=== PATIENT | male | born 1940 | race Caucasian/White ===

== ENCOUNTER 2017-01-04 05:32 | Emergency (ER) | payer MEDICARE, BC ==
[2017-01-04] MEDS ORDERED: SODIUM CHLORIDE 0.9% 1000ML 1,000 ML IV ONE ×2 (05:50→06:50)
[2017-01-04] MEDS ORDERED: ONDANSETRON HCL 4 MG/2 ML SOL ONE ×2 (05:53→07:25)
[2017-01-04] MEDS ORDERED: ONDANSETRON HCL 4 MG/2 ML SOL IV ONE ×2 (05:53→07:24)
[2017-01-04 06:08] LABS: BASOPHILS % (AUTO) 0 % (0-3); EOSINOPHILS % (AUTO) 0 % (0-9); HEMATOCRIT 27 % (39-53); MEAN CORPUSCULAR HGB CONC 35.9 gm/dl (32.0-36.0); MEAN CORPUSCULAR VOLUME 90 fL (80-100); MONOCYTES % (AUTO) 7.1 % (0-12); NEUTROPHILS % (AUTO) 80.5 % (37-80)
[2017-01-04 06:24] LABS: ALBUMIN 2.6 gm/dl (3.4-5.0); CALCIUM 7.8 mg/dl (8.5-10.1); POTASSIUM 3.1 mMol/L (3.5-5.1)
[2017-01-04] MEDS ORDERED: PROMETHAZINE HYDROCHLORIDE 25 MG/ML SOL IV ONE (06:27)
[2017-01-04] MEDS ORDERED: LIDOCAINE HCL 1% MPF SOL ONE (07:02)
[2017-01-04] MEDS ORDERED: DOBUTAMINE HCL IV ONE (08:24)
[2017-01-04] MEDS ORDERED: DOBUTAMINE HCL IV SCH (08:30)
[2017-01-04] MEDS ORDERED: SODIUM CHLORIDE 0.9% IV SCH (08:30)
[2017-01-04 08:47] LABS: APPEARANCE,URINE Clear; BILIRUBIN,URINE NEGATIVE (NEGATIVE); COLOR,URINE Yellow; GLUCOSE, URINE (UA) NEGATIVE (NEGATIVE); KETONES,URINE NEGATIVE (NEGATIVE); LEUKOCYTE ESTERASE ,URINE NEGATIVE (NEGATIVE); NITRATE,URINE NEGATIVE (NEGATIVE); OCCULT BLOOD,URINE TRACE INTACT (NEG-TRACE); PH,URINE 5.5; UROBILINOGEN,URINE 0.2 (0.2-1.0 EU)
[2017-01-04 08:56] LABS: AMPHETAMINES NEGATIVE (NEGATIVE); METHADONE NEGATIVE (NEGATIVE); OPIATES(OP13) NEGATIVE (NEGATIVE); OXYCODONE(OXY) NEGATIVE (NEGATIVE); PROPOXYPHENE(PPX) NEGATIVE (NEGATIVE); RBC,URINE 0-1 (0-3AV/HPF); TRICYCLIC ANTIDEPRESSANTS NEGATIVE (NEGATIVE); WBC,URINE 0-1 (0-5AV/HPF)
[2017-01-04 09:17] VITALS: O2SAT 98
[2017-01-04 09:20] VITALS: PULSE 70; RESP 20; TEMP 96.8
[2017-01-04 09:22] VITALS: BP 114/57
[2017-01-04 10:25] LABS: ANTIBODY SCREEN Negative; UNIT TYPE O NEGATIVE
== END 2017-01-04 08:36 | disposition short-term general hospital (02) | DRG 605 ==
LOC: ED 05:32
DX: S01.81XA Laceration without foreign body of other part of head, initial encounter (principal); I95.9 Hypotension, unspecified; D62 Acute posthemorrhagic anemia; W18.30XA Fall on same level, unspecified, initial encounter
CPT/HCPCS: 36415; 70450; 71010; 72125; 73030; 80053; 80305; 80307; 81001; 82150; 82550; 84484; 85025; 85610; 85730; 86850; 86900; 86901; 86920; 93005; 99291; G0390; J1250; J2405; J2001

== ENCOUNTER 2017-08-18 14:13 | Emergency (ER) | payer MEDICARE, BC ==
[2017-08-18 14:19] VITALS: TEMP 97.3
[2017-08-18 15:13] LABS: CALCIUM 8.8 mg/dl (8.5-10.1); POTASSIUM 3.1 mMol/L (3.5-5.1)
[2017-08-18] MEDS ORDERED: FUROSEMIDE 100 MG SOL IV ONE (16:11)
[2017-08-18] MEDS ORDERED: FUROSEMIDE 40 MG SOL ONE (16:12)
[2017-08-18 17:37] VITALS: RESP 20
[2017-08-18 18:14] VITALS: BP 127/84; PULSE 81; O2SAT 92
== END 2017-08-18 17:58 | disposition short-term general hospital (02) | DRG 293 ==
LOC: ED 14:13
DX: I50.9 Heart failure, unspecified (principal); R06.00 Dyspnea, unspecified; I48.91 Unspecified atrial fibrillation; R06.02 Shortness of breath; Z95.0 Presence of cardiac pacemaker; M79.89 Other specified soft tissue disorders
CPT/HCPCS: 71045; 80048; 83880; 85378; 99285; J1940

== ENCOUNTER 2017-08-27 09:17 | Inpatient (IN) | payer MEDICARE, BC ==
[2017-08-27 10:10] LABS: BASOPHILS % (AUTO) 1 % (0-3); EOSINOPHILS % (AUTO) 1 % (0-9); HEMATOCRIT 48 % (39-53); MEAN CORPUSCULAR HGB CONC 34.3 gm/dl (32.0-36.0); MEAN CORPUSCULAR VOLUME 89 fL (80-100); MONOCYTES % (AUTO) 11.3 % (0-12); NEUTROPHILS % (AUTO) 75.7 % (37-80)
[2017-08-27 10:11] LABS: CALCIUM 9.7 mg/dl (8.5-10.1)
[2017-08-27 10:16] LABS: POTASSIUM 2.2 mMol/L (3.5-5.1)
[2017-08-27] MEDS ORDERED: POTASSIUM CHLORIDE 2 MEQ/ML 60 MEQ, LIDOCAINE HCL 1% MDV 2 ML in SODIUM CHLORIDE 0.9% 1... IV ONE ×2 (10:18→22:02)
[2017-08-27] MEDS ORDERED: ACETAMINOPHEN 500 MG 500 MG TAB PO ONE (10:26)
[2017-08-27] MEDS ORDERED: LIDOCAINE HCL 2% MPF SOL ONE (10:30)
[2017-08-27] MEDS ORDERED: POTASSIUM CHLORIDE 2 MEQ/ML SOL IV ONE ×3 (10:31→22:21)
[2017-08-27] MEDS ORDERED: LIDOCAINE HCL 1% MPF SOL ONE ×2 (10:40→22:21)
[2017-08-27] MEDS ORDERED: ACETAMINOPHEN 500 MG 500 MG TAB ONE (10:51)
[2017-08-27] MEDS ORDERED: PATIENT EDUCATION 1 MISC PRN (12:29)
[2017-08-27] MEDS ORDERED: TRAZODONE HYDROCHLORIDE 50 MG TAB PO PRN (13:28)
[2017-08-27] MEDS ORDERED: SODIUM CHLORIDE 0.9% 1000ML 1,000 ML IV ONE (13:30)
[2017-08-27] MEDS: POTASSIUM CHLORIDE 10 MEQ TER PO SCH ×3 (16:36→22:07)
[2017-08-27] MEDS: ALLOPURINOL 100 MG TAB PO SCH (17:22)
[2017-08-27] MEDS: ATORVASTATIN 10 MG TAB PO SCH (21:12)
[2017-08-27] MEDS ORDERED: POTASSIUM CHLORIDE IV ONE (22:00)
[2017-08-27] MEDS ORDERED: SODIUM CHLORIDE 0.9% IV ONE (22:00)
[2017-08-28] MEDS: POTASSIUM CHLORIDE 10 MEQ TER PO SCH ×3 (01:08→12:15)
[2017-08-28 07:36] LABS: CALCIUM 8.8 mg/dl (8.5-10.1); POTASSIUM 3.4 mMol/L (3.5-5.1)
[2017-08-28 07:40] LABS: BASOPHILS % (AUTO) 1 % (0-3); EOSINOPHILS % (AUTO) 1 % (0-9); HEMATOCRIT 44 % (39-53); MEAN CORPUSCULAR HGB CONC 34.5 gm/dl (32.0-36.0); MEAN CORPUSCULAR VOLUME 90 fL (80-100); MONOCYTES % (AUTO) 12.9 % (0-12); NEUTROPHILS % (AUTO) 68.3 % (37-80)
[2017-08-28] MEDS ORDERED: METOPROLOL SUCCINATE 50 MG ER TAB PO SCH (09:00)
[2017-08-28] MEDS ORDERED: TORSEMIDE 10 MG TABLET PO SCH (09:00)
[2017-08-28] MEDS ORDERED: SPIRONOLACTONE 100 MG TAB PO SCH (09:00)
[2017-08-28] MEDS: SPIRONOLACTONE 25 MG TAB PO SCH (10:03)
[2017-08-28] MEDS: ALLOPURINOL 100 MG TAB PO SCH (10:03)
[2017-08-28] MEDS: METOPROLOL SUCCINATE 50 MG ER TAB PO SCH (10:04)
[2017-08-28] MEDS: TORSEMIDE 10 MG TABLET PO SCH (10:04)
[2017-08-28] MEDS: BUDESONIDE/FORMOTEROL 160/4.5 AER INH SCH (12:16)
[2017-08-28] MEDS: ATORVASTATIN 10 MG TAB PO SCH (20:34)
[2017-08-29 07:31] LABS: POTASSIUM 3.4 mMol/L (3.5-5.1)
[2017-08-29] MEDS ORDERED: METOLAZONE 2.5 MG TABLET PO ONE (08:53)
[2017-08-29] MEDS ORDERED: METOLAZONE 2.5 MG TAB PO SCH (09:00)
[2017-08-29] MEDS: POTASSIUM CHLORIDE 10 MEQ TER PO SCH ×3 (09:38→21:48)
[2017-08-29] MEDS: SPIRONOLACTONE 25 MG TAB PO SCH (09:39)
[2017-08-29] MEDS: BUDESONIDE/FORMOTEROL 160/4.5 AER INH SCH (09:39)
[2017-08-29] MEDS: TORSEMIDE 10 MG TABLET PO SCH (09:39)
[2017-08-29] MEDS: ALLOPURINOL 100 MG TAB PO SCH (09:40)
[2017-08-29] MEDS: METOPROLOL SUCCINATE 50 MG ER TAB PO SCH (09:40)
[2017-08-29] MEDS: ATORVASTATIN 10 MG TAB PO SCH (21:48)
[2017-08-30 08:31] LABS: CALCIUM 9.1 mg/dl (8.5-10.1)
[2017-08-30 08:34] LABS: POTASSIUM 2.9 mMol/L (3.5-5.1)
[2017-08-30] MEDS ORDERED: POTASSIUM CHLORIDE 2 MEQ/ML 60 MEQ, LIDOCAINE HCL 1% MDV 2 ML in SODIUM CHLORIDE 0.9% 1... IV ONE (08:51)
[2017-08-30] MEDS: SPIRONOLACTONE 25 MG TAB PO SCH (09:01)
[2017-08-30] MEDS: TORSEMIDE 10 MG TABLET PO SCH (09:01)
[2017-08-30] MEDS: METOPROLOL SUCCINATE 50 MG ER TAB PO SCH (09:02)
[2017-08-30] MEDS: ALLOPURINOL 100 MG TAB PO SCH (09:02)
[2017-08-30] MEDS: BUDESONIDE/FORMOTEROL 160/4.5 AER INH SCH (09:03)
[2017-08-30] MEDS: POTASSIUM CHLORIDE 10 MEQ TER PO SCH ×3 (09:17→20:43)
[2017-08-30] MEDS ORDERED: POTASSIUM CHLORIDE 2 MEQ/ML SOL IV ONE (09:21)
[2017-08-30] MEDS ORDERED: LIDOCAINE HCL 1% MPF SOL ONE (09:29)
[2017-08-30] MEDS ORDERED: ENOXAPARIN SODIUM 120 MG/0.8 ML SYRINGE SQ SCH (11:00)
[2017-08-30] MEDS: ENOXAPARIN 40 MG SOL SC SCH (11:58)
[2017-08-30] MEDS ORDERED: POTASSIUM CHLORIDE 10 MEQ TER ONE (20:35)
[2017-08-30] MEDS: ATORVASTATIN 10 MG TAB PO SCH (20:41)
[2017-08-31 07:32] LABS: POTASSIUM 3.1 mMol/L (3.5-5.1)
[2017-08-31 07:40] LABS: CALCIUM 8.8 mg/dl (8.5-10.1)
[2017-08-31 08:03] VITALS: BP 108/69; PULSE 67; RESP 16; TEMP 97.7; O2SAT 94
[2017-08-31] MEDS: POTASSIUM CHLORIDE 10 MEQ TER PO SCH ×5 (08:30→13:30)
[2017-08-31] MEDS: SPIRONOLACTONE 25 MG TAB PO SCH (08:46)
[2017-08-31] MEDS: TORSEMIDE 10 MG TABLET PO SCH (08:46)
[2017-08-31] MEDS: ALLOPURINOL 100 MG TAB PO SCH (08:46)
[2017-08-31] MEDS: BUDESONIDE/FORMOTEROL 160/4.5 AER INH SCH (08:47)
[2017-08-31] MEDS: METOPROLOL SUCCINATE 50 MG ER TAB PO SCH (08:47)
[2017-08-31] MEDS: ENOXAPARIN 40 MG SOL SC SCH (16:15)
== END 2017-08-31 16:10 | disposition home or self-care (01) | DRG 914 ==
LOC: ED 09:17 → UNDOADMIN 12:11 → ACUTE CARE 12:11
PROVIDERS: ADMIT Family Medicine; ATTEND Family Medicine
PROC: F01ZDZZ Gait and/or Balance Assessment (ICD-10-PCS; principal; 2017-08-28)
PROC: F01ZBZZ Bed Mobility Assessment (ICD-10-PCS; 2017-08-28)
PROC: F01ZCZZ Transfer Assessment (ICD-10-PCS; 2017-08-28)
DX: S09.90XA Unspecified injury of head, initial encounter (principal); I50.9 Heart failure, unspecified; S00.03XA Contusion of scalp, initial encounter; E87.6 Hypokalemia; W01.0XXA Fall on same level from slipping, tripping and stumbling without subsequent striking against object, initial encounter
CPT/HCPCS: 36415; 70450; 80048; 84132; 85025; 85610; 93012; 96365; 96366; 99284; J1650; J3480; A9270-GY; J2001

== ENCOUNTER 2018-06-08 08:02 | Inpatient (IN) | payer MEDICARE, BC ==
[2018-06-08 09:08] LABS: BASOPHILS % (AUTO) 0 % (0-3); EOSINOPHILS % (AUTO) 1 % (0-9); HEMATOCRIT 47 % (39-53); HEMOGLOBIN 14.9 gm/dl (13.5-17.7); LYMPHOCYTES % (AUTO) 10.3 % (10-50); MEAN CORPUSCULAR HEMOGLOBIN 29.5 pg (27.0-32.0); MEAN CORPUSCULAR HGB CONC 31.9 gm/dl (32.0-36.0); MEAN CORPUSCULAR VOLUME 92 fL (80-100); MONOCYTES % (AUTO) 7.2 % (0-12); NEUTROPHILS % (AUTO) 81.3 % (37-80)
[2018-06-08 09:21] LABS: INR 1.24 (0.86-1.12)
[2018-06-08 09:31] LABS: BILIRUBIN,TOTAL 1.1 mg/dl (0.2-1.0); CALCIUM 9.8 mg/dl (8.5-10.1); CARBON DIOXIDE 33.5 mEq/L (21-32); CREATININE 2.14 mg/dl (0.80-1.30); POTASSIUM 3.2 mMol/L (3.5-5.1); TOTAL PROTEIN 8.7 gm/dl (6.4-8.2); TROP I 0.156 ng/ml (0.000-0.056)
[2018-06-08] MEDS ORDERED: SODIUM CHLORIDE 0.9% FLUSH 10 ML SOL IV PRN (10:03)
[2018-06-08] MEDS ORDERED: SODIUM CHLORIDE/KCL 20MEQ 1,000 ML IV SCH (10:15)
[2018-06-08] MEDS ORDERED: KCL IV ONE (10:50)
[2018-06-08] MEDS ORDERED: SODIUM CHLORIDE IV ONE (10:50)
[2018-06-08] MEDS ORDERED: POTASSIUM CHLORIDE 2 MEQ/ML 30 MEQ, LIDOCAINE HCL 1% MDV 2 ML in SODIUM CHLORIDE 0.9% 5... IV ONE (11:42)
[2018-06-08] MEDS ORDERED: LIDOCAINE HCL 1% MPF 30 SOL ONE (12:34)
[2018-06-08] MEDS ORDERED: POTASSIUM CHLORIDE 2 MEQ/ML SOL IV ONE (12:34)
[2018-06-08] MEDS ORDERED: ALBUTEROL SULFATE 120 PUFF/17 GM ARO INH PRN (14:15)
[2018-06-08] MEDS ORDERED: MUPIROCIN OIN TP PRN (14:15)
[2018-06-08] MEDS: CROMOLYN SODIUM 4% EACHEYE SCH ×2 (18:09→21:53)
[2018-06-08] MEDS: SODIUM CHLORIDE 0.9% 1000ML 1,000 ML IV SCH (18:11)
[2018-06-08 19:43] LABS: POTASSIUM 3.3 mMol/L (3.5-5.1); TROP I 0.197 ng/ml (0.000-0.056)
[2018-06-08] MEDS: FERROUS GLUCONATE 324 MG TABLET PO SCH (21:53)
[2018-06-08] MEDS: POTASSIUM CHLORIDE 10 MEQ TER PO SCH (21:53)
[2018-06-08] MEDS: RIVAROXABAN 10 MG TAB PO SCH (22:08)
[2018-06-08] MEDS ORDERED: RIVAROXABAN 10 MG TAB PO SCH (22:15)
[2018-06-08] MEDS: LATANOPROST 0.005% SOL LEFTEYE SCH (23:16)
[2018-06-09] MEDS: TRAZODONE HYDROCHLORIDE 50 MG TAB PO PRN ×2 (01:49→20:40)
[2018-06-09 07:39] LABS: BASOPHILS % (AUTO) 1 % (0-3); EOSINOPHILS % (AUTO) 1 % (0-9); HEMATOCRIT 44 % (39-53); HEMOGLOBIN 13.8 gm/dl (13.5-17.7); LYMPHOCYTES % (AUTO) 14.6 % (10-50); MEAN CORPUSCULAR HEMOGLOBIN 29.5 pg (27.0-32.0); MEAN CORPUSCULAR HGB CONC 31.5 gm/dl (32.0-36.0); MEAN CORPUSCULAR VOLUME 93 fL (80-100); MONOCYTES % (AUTO) 8.8 % (0-12); NEUTROPHILS % (AUTO) 74.9 % (37-80)
[2018-06-09 07:46] LABS: CALCIUM 9.5 mg/dl (8.5-10.1); CARBON DIOXIDE 29.1 mEq/L (21-32); CREATININE 1.59 mg/dl (0.80-1.30); POTASSIUM 3.4 mMol/L (3.5-5.1)
[2018-06-09] MEDS: BUDESONIDE/FORMOTEROL 160/4.5 AER INH SCH (08:24)
[2018-06-09] MEDS: METOPROLOL SUCCINATE 50 MG ER TAB PO SCH (08:25)
[2018-06-09] MEDS: SPIRONOLACTONE 100 MG TAB PO SCH (08:26)
[2018-06-09] MEDS: ATORVASTATIN 10 MG TAB PO SCH (08:26)
[2018-06-09] MEDS: FERROUS GLUCONATE 324 MG TABLET PO SCH ×2 (08:27→20:26)
[2018-06-09] MEDS: ALLOPURINOL 100 MG TAB PO SCH (08:27)
[2018-06-09] MEDS: POTASSIUM CHLORIDE 10 MEQ TER PO SCH ×2 (08:34→20:26)
[2018-06-09] MEDS: CROMOLYN SODIUM 4% EACHEYE SCH ×3 (09:00→17:55)
[2018-06-09] MEDS: SODIUM CHLORIDE 0.9% 1000ML 1,000 ML IV SCH (14:16)
[2018-06-09] MEDS: RIVAROXABAN 10 MG TAB PO SCH (20:26)
[2018-06-09] MEDS: LATANOPROST 0.005% SOL LEFTEYE SCH (20:28)
[2018-06-10 07:33] LABS: BASOPHILS % (AUTO) 1 % (0-3); EOSINOPHILS % (AUTO) 2 % (0-9); HEMATOCRIT 39 % (39-53); LYMPHOCYTES % (AUTO) 13.3 % (10-50); MEAN CORPUSCULAR HEMOGLOBIN 30.9 pg (27.0-32.0); MEAN CORPUSCULAR HGB CONC 33.3 gm/dl (32.0-36.0); MEAN CORPUSCULAR VOLUME 93 fL (80-100); MONOCYTES % (AUTO) 9.2 % (0-12); NEUTROPHILS % (AUTO) 75.1 % (37-80)
[2018-06-10 07:40] LABS: CALCIUM 8.4 mg/dl (8.5-10.1); CARBON DIOXIDE 30.8 mEq/L (21-32); CREATININE 1.41 mg/dl (0.80-1.30); POTASSIUM 3.6 mMol/L (3.5-5.1)
[2018-06-10 07:51] VITALS: BP 102/65; PULSE 70; RESP 12; TEMP 97.9; O2SAT 98
[2018-06-10] MEDS: BUDESONIDE/FORMOTEROL 160/4.5 AER INH SCH (08:47)
[2018-06-10] MEDS: POTASSIUM CHLORIDE 10 MEQ TER PO SCH (08:49)
[2018-06-10] MEDS: FERROUS GLUCONATE 324 MG TABLET PO SCH (08:49)
[2018-06-10] MEDS: ATORVASTATIN 10 MG TAB PO SCH (08:51)
[2018-06-10] MEDS: METOPROLOL SUCCINATE 50 MG ER TAB PO SCH (08:52)
[2018-06-10] MEDS: ALLOPURINOL 100 MG TAB PO SCH (08:52)
[2018-06-10] MEDS ORDERED: TORSEMIDE 10 MG TABLET PO SCH ×2 (09:00→10:47)
[2018-06-10] MEDS ORDERED: TORSEMIDE 20 MG TAB PO SCH (09:00)
[2018-06-10] MEDS: SPIRONOLACTONE 100 MG TAB PO SCH (09:05)
[2018-06-10] MEDS: SODIUM CHLORIDE 0.9% 1000ML 1,000 ML IV SCH (09:39)
== END 2018-06-10 11:10 | disposition home or self-care (01) | DRG 293 ==
LOC: ED 08:02 → UNDOADMIN 11:28 → ACUTE CARE 11:28
PROVIDERS: ADMIT Family Medicine; ATTEND Family Medicine
PROC: F01L5YZ Range of Motion and Joint Integrity Assessment of Musculoskeletal System - Lower Back / Lower Extremity using Other Equipment (ICD-10-PCS; principal; 2018-06-08)
PROC: F01ZBZZ Bed Mobility Assessment (ICD-10-PCS; 2018-06-08)
DX: R42 Dizziness and giddiness (principal); N17.9 Acute kidney failure, unspecified; R53.1 Weakness; W18.39XA Other fall on same level, initial encounter; I10 Essential (primary) hypertension; E86.0 Dehydration; S51.011A Laceration without foreign body of right elbow, initial encounter; S09.90XA Unspecified injury of head, initial encounter; S01.111A Laceration without foreign body of right eyelid and periocular area, initial encounter; E87.6 Hypokalemia; I48.91 Unspecified atrial fibrillation; I50.9 Heart failure, unspecified
CPT/HCPCS: 36415; 70450; 80048; 80053; 80307; 83880; 84132; 84484; 85025; 85610; 93005; 93012; 99231; 99285; J3480; A6232; A6402; A9270-GY; J2001

== ENCOUNTER 2019-03-11 07:56 | Inpatient (IN) | payer MEDICARE, BC ==
[2019-03-11 08:39] LABS: BASOPHILS % (AUTO) 0 % (0-3); EOSINOPHILS % (AUTO) 2 % (0-9); HEMATOCRIT 41 % (39-53); HEMOGLOBIN 12.8 gm/dl (13.5-17.7); LYMPHOCYTES % (AUTO) 13.6 % (10-50); MEAN CORPUSCULAR HEMOGLOBIN 31.6 pg (27.0-32.0); MEAN CORPUSCULAR HGB CONC 31.4 gm/dl (32.0-36.0); MONOCYTES % (AUTO) 11.9 % (0-12); NEUTROPHILS % (AUTO) 72.5 % (37-80)
[2019-03-11 08:42] LABS: MEAN CORPUSCULAR VOLUME 101 fL (80-100)
[2019-03-11 08:57] LABS: ALBUMIN 3.5 gm/dl (3.4-5.0); BILIRUBIN,TOTAL 1.3 mg/dl (0.2-1.0); CALCIUM 8.6 mg/dl (8.5-10.1); CARBON DIOXIDE 28.4 mEq/L (21-32); CREATININE 1.55 mg/dl (0.80-1.30); TOTAL PROTEIN 7.6 gm/dl (6.4-8.2); TROP I 0.15 ng/ml (0.000-0.056)
[2019-03-11] MEDS ORDERED: FUROSEMIDE 100 MG SOL IV ONE (09:38)
[2019-03-11] MEDS ORDERED: FUROSEMIDE 100 MG SOL ONE (09:44)
[2019-03-11] MEDS ORDERED: TRAZODONE HYDROCHLORIDE 50 MG TAB PO PRN (15:23)
[2019-03-11] MEDS ORDERED: POLYETHYLENE GLYCOL 17 GM/1 TBS PDS PO PRN (16:06)
[2019-03-11] MEDS ORDERED: MAGNESIUM HYDROXIDE 30 ML SUS PO PRN (16:06)
[2019-03-11] MEDS ORDERED: MUPIROCIN OIN TP PRN (17:00)
[2019-03-11] MEDS: SODIUM CHLORIDE 0.9% FLUSH 10 ML SOL IV SCH ×3 (17:31→21:57)
[2019-03-11] MEDS ORDERED: FUROSEMIDE 40 MG SOL IV SCH (17:45)
[2019-03-11] MEDS: FUROSEMIDE 100 MG SOL IV SCH (17:53)
[2019-03-11] MEDS: CROMOLYN SODIUM 4% EACHEYE SCH ×2 (17:54→21:13)
[2019-03-11] MEDS: LATANOPROST 0.005% SOL LEFTEYE SCH (20:59)
[2019-03-11] MEDS: POTASSIUM CHLORIDE 10 MEQ TER PO SCH (21:00)
[2019-03-11] MEDS: FERROUS GLUCONATE 324 MG TABLET PO SCH (21:01)
[2019-03-12] MEDS: FUROSEMIDE 100 MG SOL IV SCH ×4 (02:19→18:27)
[2019-03-12] MEDS: SODIUM CHLORIDE 0.9% FLUSH 10 ML SOL IV SCH ×3 (06:22→21:37)
[2019-03-12 07:30] LABS: BASOPHILS % (AUTO) 1 % (0-3); EOSINOPHILS % (AUTO) 2 % (0-9); HEMATOCRIT 39 % (39-53); HEMOGLOBIN 12.3 gm/dl (13.5-17.7); LYMPHOCYTES % (AUTO) 11.6 % (10-50); MEAN CORPUSCULAR HGB CONC 31.5 gm/dl (32.0-36.0); MONOCYTES % (AUTO) 11.6 % (0-12); NEUTROPHILS % (AUTO) 73.7 % (37-80)
[2019-03-12 07:35] LABS: MEAN CORPUSCULAR VOLUME 102 fL (80-100)
[2019-03-12 07:41] LABS: INR 1.19 (0.87-1.13)
[2019-03-12 07:49] LABS: CARBON DIOXIDE 30.7 mEq/L (21-32); CREATININE 1.21 mg/dl (0.80-1.30); THYROID STIMULATING HORMONE 1.785 uIU/ml (0.358-3.740); TROP I 0.134 ng/ml (0.000-0.056)
[2019-03-12 08:06] LABS: APPEARANCE,URINE Clear; BILIRUBIN,URINE NEGATIVE (NEGATIVE); COLOR,URINE Yellow; GLUCOSE, URINE (UA) NEGATIVE (NEGATIVE); KETONES,URINE NEGATIVE (NEGATIVE); LEUKOCYTE ESTERASE ,URINE NEGATIVE (NEGATIVE); NITRATE,URINE NEGATIVE (NEGATIVE); OCCULT BLOOD,URINE NEGATIVE (NEG-TRACE); UROBILINOGEN,URINE 0.2 (0.2-1.0 EU)
[2019-03-12 08:31] LABS: BACTERIA TRACE (< 1+); CRYSTALS NEGATIVE (0-3 AVE/HPF); EPITHELIAL CELLS 0-1 (SQUAMOUS); RBC,URINE NEG (0-3AV/HPF); WBC,URINE NEG (0-5AV/HPF)
[2019-03-12] MEDS: RIVAROXABAN 10 MG TAB PO SCH (09:29)
[2019-03-12] MEDS: POTASSIUM CHLORIDE 10 MEQ TER PO SCH ×2 (09:29→20:35)
[2019-03-12] MEDS: ALLOPURINOL 100 MG TAB PO SCH (09:30)
[2019-03-12] MEDS: FERROUS GLUCONATE 324 MG TABLET PO SCH ×2 (09:30→20:35)
[2019-03-12] MEDS: SPIRONOLACTONE 100 MG TAB PO SCH ×2 (09:30→09:59)
[2019-03-12] MEDS: ATORVASTATIN 10 MG TAB PO SCH (09:30)
[2019-03-12] MEDS: METOPROLOL SUCCINATE 50 MG ER TAB PO SCH (09:30)
[2019-03-12] MEDS: SPIRONOLACTONE 25 MG TAB PO SCH (09:31)
[2019-03-12] MEDS: CROMOLYN SODIUM 4% EACHEYE SCH ×4 (09:38→20:35)
[2019-03-12] MEDS: LATANOPROST 0.005% SOL LEFTEYE SCH (20:36)
[2019-03-13] MEDS: SODIUM CHLORIDE 0.9% FLUSH 10 ML SOL IV SCH ×4 (06:25→22:10)
[2019-03-13 08:01] LABS: CALCIUM 8.7 mg/dl (8.5-10.1); CARBON DIOXIDE 30.8 mEq/L (21-32); CREATININE 1.19 mg/dl (0.80-1.30)
[2019-03-13] MEDS: ATORVASTATIN 10 MG TAB PO SCH (09:18)
[2019-03-13] MEDS: POTASSIUM CHLORIDE 10 MEQ TER PO SCH ×2 (09:18→20:46)
[2019-03-13] MEDS: SPIRONOLACTONE 25 MG TAB PO SCH (09:18)
[2019-03-13] MEDS: FERROUS GLUCONATE 324 MG TABLET PO SCH ×2 (09:18→20:47)
[2019-03-13] MEDS: RIVAROXABAN 10 MG TAB PO SCH (09:19)
[2019-03-13] MEDS: CROMOLYN SODIUM 4% EACHEYE SCH ×4 (09:19→20:46)
[2019-03-13] MEDS: ALLOPURINOL 100 MG TAB PO SCH (09:19)
[2019-03-13] MEDS: METOPROLOL SUCCINATE 50 MG ER TAB PO SCH (09:20)
[2019-03-13] MEDS: FUROSEMIDE 100 MG SOL IV SCH ×3 (09:20→18:28)
[2019-03-13] MEDS ORDERED: FUROSEMIDE 100 MG SOL ONE ×2 (14:24→18:06)
[2019-03-13] MEDS: LATANOPROST 0.005% SOL LEFTEYE SCH (20:47)
[2019-03-14] MEDS: SODIUM CHLORIDE 0.9% FLUSH 10 ML SOL IV SCH ×5 (06:01→21:14)
[2019-03-14 07:31] LABS: CALCIUM 8.4 mg/dl (8.5-10.1); CARBON DIOXIDE 32.3 mEq/L (21-32); CREATININE 1.23 mg/dl (0.80-1.30); TROP I 0.139 ng/ml (0.000-0.056)
[2019-03-14] MEDS: METOPROLOL SUCCINATE 50 MG ER TAB PO SCH (09:05)
[2019-03-14] MEDS: POTASSIUM CHLORIDE 10 MEQ TER PO SCH ×2 (09:05→21:10)
[2019-03-14] MEDS: FERROUS GLUCONATE 324 MG TABLET PO SCH ×2 (09:06→21:10)
[2019-03-14] MEDS: SPIRONOLACTONE 25 MG TAB PO SCH (09:06)
[2019-03-14] MEDS: ATORVASTATIN 10 MG TAB PO SCH (09:06)
[2019-03-14] MEDS: ALLOPURINOL 100 MG TAB PO SCH (09:06)
[2019-03-14] MEDS: RIVAROXABAN 10 MG TAB PO SCH (09:06)
[2019-03-14] MEDS: FUROSEMIDE 100 MG SOL IV SCH ×3 (09:07→17:00)
[2019-03-14] MEDS: CROMOLYN SODIUM 4% EACHEYE SCH ×4 (09:08→21:11)
[2019-03-14] MEDS: LATANOPROST 0.005% SOL LEFTEYE SCH (21:13)
[2019-03-15 00:46] VITALS: RESP 16; O2SAT 97
[2019-03-15] MEDS: SODIUM CHLORIDE 0.9% FLUSH 10 ML SOL IV SCH (06:44)
[2019-03-15 08:02] LABS: CALCIUM 8.3 mg/dl (8.5-10.1); CARBON DIOXIDE 29.1 mEq/L (21-32); CREATININE 1.21 mg/dl (0.80-1.30)
[2019-03-15 08:32] VITALS: BP 103/66; PULSE 70; TEMP 97.8
[2019-03-15] MEDS: RIVAROXABAN 10 MG TAB PO SCH (08:41)
[2019-03-15] MEDS: POTASSIUM CHLORIDE 10 MEQ TER PO SCH (08:42)
[2019-03-15] MEDS: FERROUS GLUCONATE 324 MG TABLET PO SCH (08:42)
[2019-03-15] MEDS: CROMOLYN SODIUM 4% EACHEYE SCH (08:44)
[2019-03-15] MEDS: ATORVASTATIN 10 MG TAB PO SCH (08:45)
[2019-03-15] MEDS: SPIRONOLACTONE 25 MG TAB PO SCH (08:45)
[2019-03-15] MEDS: ALLOPURINOL 100 MG TAB PO SCH (08:46)
[2019-03-15] MEDS: METOPROLOL SUCCINATE 50 MG ER TAB PO SCH (08:47)
[2019-03-15] MEDS ORDERED: TORSEMIDE 10 MG TABLET PO SCH (09:00)
== END 2019-03-15 12:05 | disposition home or self-care (01) | DRG 293 ==
LOC: ED 07:56 → ACUTE CARE 10:19 → UNDOADMIN 10:19 → ACUTE CARE 10:35
PROVIDERS: ADMIT Family Medicine; ATTEND Family Medicine
DX: I50.9 Heart failure, unspecified (principal); E86.0 Dehydration; R06.02 Shortness of breath; G47.36 Sleep related hypoventilation in conditions classified elsewhere; Z95.0 Presence of cardiac pacemaker; I48.91 Unspecified atrial fibrillation; R10.9 Unspecified abdominal pain; N18.3 Chronic kidney disease, stage 3 (moderate); R19.7 Diarrhea, unspecified; K59.00 Constipation, unspecified; Z79.01 Long term (current) use of anticoagulants; R53.83 Other fatigue; R79.89 Other specified abnormal findings of blood chemistry
CPT/HCPCS: 36415; 71046; 80048; 80053; 81001; 83880; 84443; 84484; 85025; 85610; 93012; 96374; 99283; J1940; A9270-GY